=== PATIENT | female | born 1970 | race Caucasian/White ===

== ENCOUNTER 2017-11-22 13:18 | Emergency (ER) | payer OTHER ==
[~2017-11-22] VITALS: Ht 170.1 cm; Wt 115.2 kg
[2017-11-22] MEDS ORDERED: METFORMIN1000 MG PO (13:39)
[2017-11-22] MEDS ORDERED: LIPITOR10 MG PO (13:39)
[2017-11-22] MEDS ORDERED: AMARYL4 MG PO (13:40)
[2017-11-22] MEDS ORDERED: PRILOSEC20 M1 PO (13:41)
[2017-11-22] MEDS ORDERED: VIMPAT50 MG PO (13:41)
[2017-11-22] MEDS ORDERED: TAMIFLU 75MG CA75 MG PO (14:51)
== END 2017-11-22 14:59 | disposition home or self-care (01) ==
LOC: ED 13:18
DX: B34.9 Viral infection, unspecified (principal); Z20.828 Contact with and (suspected) exposure to other viral communicable diseases; Z79.899 Other long term (current) drug therapy